=== PATIENT | male | born 2000 | race Caucasian/White ===

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

== ENCOUNTER 2021-02-13 02:27 | Emergency (ER) | payer MEDICAID ==
[~2021-02-13 02:27] MED LIST: BO1 TP
== END 2021-02-13 03:10 | disposition left against medical advice (07) ==
LOC: ER 02:27
DX: Z53.21 Procedure and treatment not carried out due to patient leaving prior to being seen by health care provider (principal)